=== PATIENT | male | born 1965 | race Two or more races ===

== ENCOUNTER 2023-11-03 16:05 | Emergency (ER) | payer BC, SELFPAY ==
[2023-11-03 16:18] VITALS: BP 131/79; PULSE 88; RESP 16; TEMP 37.3; O2SAT 99
--- NOTE | 2023-11-03 16:32 | ED.GENADULT ---
HPI - General Adult General Chief complaint: Ear Stated complaint: JAW SWELLING Time Seen by Provider: 11/03/23 16:17 Source: patient and RN notes reviewed Mode of arrival: ambulatory Limitations: no limitations History of Present Illness HPI narrative: Patient presents today complaining of sudden onset left upper and lower jaw swelling 4 hours ago. Denies tooth pain, ear pain, shortness breath or difficulty swallowing, fever. Pain does increase when he clenches his jaws. States he had something similar a few months ago and woke up with blood coming out of his ear and the swelling spontaneously resolved. He is having some difficulty opening his mouth fully. Related Data Home Medications Medication Instructions Recorded Confirmed aspirin 81 mg effervescent tablet 81 mg PO DAILY 11/03/23 11/03/23 atorvastatin 40 mg tablet 40 mg PO DAILY 11/03/23 11/03/23 ergocalciferol (vitamin D2) 1,250 1,250 mcg PO DAILY 11/03/23 11/03/23 mcg (50,000 unit) capsule hydroxyzine HCl 25 mg tablet 25 mg PO DAILY 11/03/23 11/03/23 metformin 500 mg tablet,extended 500 mg PO DAILY 11/03/23 11/03/23 release 24 hr naproxen 500 mg tablet 500 mg PO PRN PRN Mild Pain (Scale 11/03/23 11/03/23 Score 1-4) omeprazole 40 mg capsule,delayed 40 mg PO DAILY 11/03/23 11/03/23 release tamsulosin 0.4 mg capsule 0.4 mg PO DAILY 11/03/23 11/03/23 umeclidinium 62.5 mcg-vilanterol 25 inh inhalation PRN PRN 11/03/23 11/03/23 25 mcg/actuation powdr for Shortness Of Breath Or Wheezing inhalation (Anoro Ellipta) Allergies Allergy/AdvReac Type Severity Reaction Status Date / Time No Known Allergies Allergy Verified 11/03/23 16:13 Review of Systems Review of Systems: CONSTITUTIONAL: Denies body aches, fever, chills, or sweats. EYES: Denies visual changes, redness, or discharge. ENT: Denies rhinorrhea, congestion, sore throat, or otalgia.+ left jaw pain and swelling CARDIOVASCULAR: Denies chest pain, palpitations, or edema. RESPIRATORY: Denies cough or dyspnea. GASTROINTESTINAL: Denies abdominal pain, nausea, vomiting, or diarrhea. GENITOURINARY: Denies dysuria or hematuria. SKIN: Denies rash, itching, or wounds. MUSCULOSKELETAL: Denies back pain, joint pain, or myalgia. NEUROLOGIC: Denies headache, numbness, tingling, or weakness. PSYCH: Denies depression or anxiety. PMFSH Comments At time of signature, I have reviewed and agree with nursing past medical, surgical, social and family history unless otherwise noted. Please see nursing chart for further information. There is no relevant family history pertinent to the presenting complaint Exam Narrative: GENERAL: Well-appearing, well-nourished, and in no acute distress. HEAD: Normocephalic, atraumatic. EYES: EOMI. No redness or drainage. Conjunctivae normal. ENT: Mucous membranes pink and moist. TMs normal bilaterally. Unable to visualize throat. No drainage from visualized salivary glands. Patient can open his mouth only 2 finger breaths. Marked swelling of the posterior left upper and lower jaw with tenderness that extends to the mosque and slightly down the neck. NECK: Normal AROM. Supple. No lymphadenopathy. CHEST: No respiratory distress. Clear to auscultation. HEART: Regular rate and rhythm. No murmur appreciated. EXTREMITIES: Normal range of motion. No edema. SKIN: Warm, dry, no rash. Capillary refill normal. Normal skin turgor. NEURO: No focal deficits. Alert and oriented x3. Gait steady. PSYCH: Normal affect. No signs of depression or anxiety. Course Course Level of Care: Express Care Visit Vital Signs Vital signs: Vital Signs Temperature 99.2 F 11/03/23 16:18 Pulse Rate 88 11/03/23 16:18 Respiratory Rate 16 11/03/23 16:18 Blood Pressure 131/79 11/03/23 16:18 Pulse Oximetry 99 11/03/23 16:18 Temperature 99.2 F 11/03/23 16:18 Pulse Rate 88 11/03/23 16:18 Respiratory Rate 16 11/03/23 16:18 Blood Pressure 131/79 11/03/23 1
== END 2023-11-03 16:33 | disposition short-term general hospital (02) ==
PROVIDERS: Emergency Provider Nurse Practitioner
DX: R22.0 Localized swelling, mass and lump, head (principal); Z79.82 Long term (current) use of aspirin; Z79.899 Other long term (current) drug therapy; Z79.84 Long term (current) use of oral hypoglycemic drugs
CPT/HCPCS: 99212; G0463

== ENCOUNTER 2023-11-03 16:49 | Emergency (ER) | payer BC, SELFPAY ==
--- NOTE | ~2023-11-03 | CT_ITS ---
EXAMINATION: CT soft tissue neck w con DATE: 11/03/2023 21:05 INDICATION: Mandibular swelling TECHNIQUE: Computed tomography (CT) of the neck was performed with 75 mL Omnipaque-350 intravenous co ntrast. Automated exposure control and iterative reconstruction technique were employed. The dose-bonita gth product was 576.98 mGy-cm. COMPARISON: None FINDINGS: Orbits are normal. The paranasal sinuses are clear. Visualized sinuses and mastoid aircells are clear . Submandibular glands are symmetric. Right parotid gland is normal. Mild asymmetric increase in size and increased density with hyperemia in the left parotid gland consistent with parotitis. This May b e related to a 4 mm sialolith in the central left parotid gland the infant 3 stranding extends caudal ly in the subcutaneous tissues along the posterior margin of the left mandible. Thyroid gland is norm al. There are scattered normal-sized lymph nodes in the neck, no lymphadenopathy. No masses identifi ed. The vasculature is patent and normal in caliber. Airway is unremarkable. Visualized upper lungs a nd superior mediastinum are unremarkable. IMPRESSION: 1. Left parotiditis which may be related to a central sialolith. Reviewed, dictated and finalized at location A. [employer]
[2023-11-03 17:10] VITALS: BP 140/84; PULSE 87; RESP 17; TEMP 37.2; O2SAT 98
[2023-11-03 19:50] VITALS: BP 127/86; PULSE 88; RESP 15; TEMP 36.4; O2SAT 100
--- NOTE | 2023-11-03 19:58 | PC.NURSE ---
Patient states that his jaw pain began today at 1200. Patient denies taking anything for pain or for swelling. Patient states when he is not eating or talking pain is a 2/3-10, but if he is eating or talking then pain is about a 6/7-10. Patient denies any SOB or CP.
--- NOTE | 2023-11-03 20:16 | ED.DENTAL ---
HPI - Dental/Oral General Chief complaint: Dental/Oral Stated complaint: sudden swelling to left jaw Time Seen by Provider: 11/03/23 19:48 History of Present Illness HPI Narrative: Patient is a 57-year-old male with history of prediabetes, hyperlipidemia here today with left-sided facial swelling. He states that it began around noon today. Located on the left lower jaw and is painful when he attempts to eat. He denies any known dental infection or dental fractures. He notes the pain is worse when he attempts to chew or open his mouth. He denies any difficulty swallowing. He does believe the swelling is improving. He notes that he went to an urgent care and the nurse practitioner who he saw they recommended he come into the emergency department for CT scan. He denies fever chills. Denies trauma. He does note he had a similar episode several months ago which self resolved after couple of days. This episode was associated with some blood from his ear canal which has not been present today. Denies any hearing difficulties or ear drainage. Of note, he is from the [facility] and is in the area for a few days for work. Related Data Home Medications Medication Instructions Recorded Confirmed aspirin 81 mg effervescent tablet 81 mg PO DAILY 11/03/23 11/03/23 atorvastatin 40 mg tablet 40 mg PO DAILY 11/03/23 11/03/23 ergocalciferol (vitamin D2) 1,250 1,250 mcg PO DAILY 11/03/23 11/03/23 mcg (50,000 unit) capsule hydroxyzine HCl 25 mg tablet 25 mg PO DAILY 11/03/23 11/03/23 metformin 500 mg tablet,extended 500 mg PO DAILY 11/03/23 11/03/23 release 24 hr naproxen 500 mg tablet 500 mg PO PRN PRN Mild Pain (Scale 11/03/23 11/03/23 Score 1-4) omeprazole 40 mg capsule,delayed 40 mg PO DAILY 11/03/23 11/03/23 release tamsulosin 0.4 mg capsule 0.4 mg PO DAILY 11/03/23 11/03/23 umeclidinium 62.5 mcg-vilanterol 25 inh inhalation PRN PRN 11/03/23 11/03/23 25 mcg/actuation powdr for Shortness Of Breath Or Wheezing inhalation (Anoro Ellipta) Allergies Allergy/AdvReac Type Severity Reaction Status Date / Time No Known Allergies Allergy Verified 11/03/23 16:13 Review of Systems Review of Systems: All systems reviewed & are unremarkable except as noted in HPI and below Exam Narrative: GENERAL: Well-appearing, well-nourished, and in no acute distress. HEAD: Normocephalic, atraumatic. EYES: PERRLA and EOMI. ENT: Nares clear. Mucous membranes moist. Facial swelling present to the lateral lower left mandible. Minimally tender to touch, no lymphadenopathy. Normal TM bilaterally. No obvious dental carries. Mild trismus present. Uvula midline. No sublingual fullness present. NECK: Supple. CHEST: Clear to auscultation. No respiratory distress. HEART: Regular rate and rhythm. Normal peripheral pulses. ABDOMEN: Soft, nontender, nondistended. EXTREMITIES: Normal range of motion. No edema. SKIN: Warm, dry, no rash. NEURO: No focal deficits. Alert and oriented x3. PSYCH: Normal mood and affect. Course Course Emergency Course: Chart review performed, patient here with left sided facial and jaw swelling x 1 day. Triage vitals normal. Patient seen and evaluated, non toxic appearing. Isolated facial swelling on the left. Differentials include sialoadenitis, parotitis, dental carries, less likely deep space infection. Will do basic lab work, amylase, CT soft tissue neck. Patient agreeable. Amylase elevated, WBC 10.6, CRP mildly elevated. CT shows parotitis with stone present. Will start on antibiotics and advised sour candies. He is not from this area, would prefer to follow with an ENT near his home in [place]. The results of pertinent diagnostic studies and exam findings were discussed. The patient?s provisional diagnosis and plan of care were discussed with the patient and present family. The patient and/or present family expressed understanding of the diagnosis and plan. The nurse was instructed to provide written instructio
[2023-11-03 20:36] LABS: Basophils Percent Auto 0.4 % (0.2-1.2); Eosinophils Absolute Auto 0.1 K/mm3 (0-0.3); Eosinophils Percent Auto 0.9 % (0-4.4); Hematocrit 46.3 % (42.0-52.0); Hemoglobin 14.9 g/dL (14.0-18.0); Immature Granulocyte Absolute 0.02 K/mm3 (0.00-0.031); Immature Granulocyte Percent A 0.2 % (0-0.5); Lymphocytes Absolute Auto 2.33 K/mm3 (0.9-3.2); Mean Corpuscular HGB Conc 32.2 g/dl (32-36); Mean Corpuscular Hemoglobin 28.9 pg (26-34); Mean Corpuscular Volume 89.7 fl (80-100); Mean Platelet Volume 9.6 fl (7.4-10.4); Monocytes Absolute Auto 0.7 K/mm3 (0.1-0.6); Neutrophils Absolute Auto 7.4 K/mm3 (1.3-6.7); Neutrophils Percent Auto 69.5 % (45.5-73.1); Platelet Count Result 185 k/mm3 (150-375); Red Blood Count 5.16 M/mm3 (4.6-6.20); Red Cell Distribution Width 13.1 % (11.5-14.5); White Blood Count 10.6 K/mm3 (4.5-10.0)
[2023-11-03 20:52] LABS: Alanine Aminotransferase 21 U/L (6-50); Albumin Level 4.9 g/dL (3.5-5.1); Alkaline Phosphatase 66 U/L (38-126); Amylase 621 U/L (30-110); Anion Gap 8 mmol/L (8-16); Aspartate Amino Transferase 29 U/L (17-59); Blood Urea Nitrogen 10 mg/dL (9-20); CRP 3.6 mg/dL (<1.0); Calcium 9.6 mg/dL (8.4-10.2); Carbon Dioxide 30 mmol/L (22-30); Chloride 99 mmol/L (98-107); Estimated CRCL calculation 102 ml/min; Estimated Glomerular Filt Rate > 60; Glucose 101 mg/dL (65-110); Potassium 4.7 mmol/L (3.4-5.0); Sodium 137 mmol/L (137-145)
[2023-11-03 21:00] VITALS: BP 124/70; PULSE 88; RESP 15; O2SAT 99
[2023-11-03] MEDS: AMOXICILLIN/CLAVULANATE K 875-125 MG TAB 1 TABLET PO (22:29)
[2023-11-03 22:33] VITALS: BP 130/76; PULSE 78; RESP 16; TEMP 36.6; O2SAT 100
== END 2023-11-03 22:34 | disposition home or self-care (01) ==
PROVIDERS: Emergency Provider Student in an Organized Health Care Education/Training Program
DX: K11.21 Acute sialoadenitis (principal); R73.03 Prediabetes; E78.5 Hyperlipidemia, unspecified; Z79.82 Long term (current) use of aspirin; Z79.84 Long term (current) use of oral hypoglycemic drugs
CPT/HCPCS: 36415; 70491; 80053; 82150; 85025; 86140; 99284; A9270; Q9967